=== PATIENT | male | born 1955 | race Two or more races ===

== ENCOUNTER 2016-09-17 21:49 | Emergency (ER) | payer BC ==
[2016-09-17] MEDS ORDERED: Diphtheria,Pertussis(Acell),Tetanus Vaccine 0.5 ML Syringe IM ONE (21:58)
--- NOTE | 2016-09-17 22:08 | EDM.PDOC ---
<Kofi Perez - Last Filed: 09/17/16 22:14> ED HPI GENERAL MEDICAL PROBLEM - General Chief Complaint: Skin Complaint Stated Complaint: PT HAS NAIL IN CHEST Time Seen by Provider: 09/17/16 22:03 Source of Information: Reports: Patient History Limitations: Reports: No Limitations - History of Present Illness INITIAL COMMENTS - FREE TEXT/NARRATIVE: History of present illness: [61-year-old male comes in complaining of a wound to right pectoral region secondary to a nail.] Review of systems: As per history of present illness and below otherwise all systems reviewed and negative. Past medical history: As per history of present illness and as reviewed below otherwise noncontributory. Surgical history: As per history of present illness and as reviewed below otherwise noncontributory. Social history: No reported history of drug or alcohol abuse. Family history: As per history of present illness and as reviewed below otherwise noncontributory. Physical exam: HEENT: Atraumatic, normocephalic, pupils reactive, negative for conjunctival pallor or scleral icterus, mucous membranes moist, throat clear, neck supple, nontender, trachea midline. Lungs: Clear to auscultation, breath sounds equal bilaterally, chest nontender. Heart: S1S2, regular, negative for clicks, rubs, or JVD. Abdomen: Soft, nondistended, nontender. Negative for masses or hepatosplenomegaly. Negative for costovertebral tenderness. Pelvis: Stable nontender. Genitourinary: Deferred. Rectal: Deferred. Extremities: Atraumatic, negative for cords or calf pain. Neurovascular unremarkable. Neuro: Awake, alert, oriented. Cranial nerves II through XII unremarkable. Cerebellum unremarkable. Motor and sensory unremarkable throughout. Exam nonfocal. Skin: Small wound noted to right pectoral region approximately 2 cm above the right nipple Diagnostics: [] Therapeutics: [Tetanus] Impression: [Superficial wound to right chest] Plan: [Tetanus] Definitive disposition and diagnosis as appropriate pending reevaluation and review of above. Right Upper Chest Pain Score (Numeric/FACES): 3 - Related Data Allergies Allergy/AdvReac Type Severity Reaction Status Date / Time No Known Allergies Allergy Verified 02/22/16 16:57 Home Meds: Home Meds . [Unable to Verify Home Med List] 09/17/16 [History] Past Medical History - Past Health History Medical/Surgical History: Denies Medical/Surgical History HEENT History: Reports: None Cardiovascular History: Reports: Hypertension Psychiatric History: Reports: None - Past Surgical History Musculoskeletal Surgical History: Reports: Other (See Below) Social & Family History - Family History Family Medical History: Noncontributory - Tobacco Use Smoking Status *Q: Current Some Day Smoker Years of Tobacco use: 10 Packs/Tins Daily: 0.2 - Caffeine Use Caffeine Use: Reports: Coffee - Recreational Drug Use Recreational Drug Use: No ED ROS GENERAL - Review of Systems Review Of Systems: See Below (See history of present illness) ED EXAM, SKIN/RASH Exam: See Below (History of present illness) Course - Vital Signs Last Recorded V/S: Last Vital Signs Temp 36.6 C 09/17/16 21:58 Pulse 64 09/17/16 21:58 Resp 16 09/17/16 21:58 BP 176/87 H 09/17/16 21:58 Pulse Ox 96 09/17/16 21:58 - Orders/Labs/Meds Orders: Active Orders 24 hr Category Date Time Status Vaccines to be Administered [RC] PER UNIT ROUTINE Care 09/17/16 21:58 Active Chest 2V [CR] Stat Exams 09/17/16 21:56 Taken Meds: Medications Discontinued Medications Generic Name Dose Route Start Last Admin Trade Name Trena PRN Reason Stop Dose Admin Diphtheria/Tetanus/Acell Pertussis 0.5 ml 09/17/16 21:58 09/17/16 22:15 Adacel IM 09/17/16 21:59 0.5 ml .ONCE ONE Administration Departure - Departure Time of Disposition: 22:09 Disposition: Home, Self-Care 01 Clinical Impression: Abrasion - Discharge Information Referrals: PCP,None [Primary Care Provider] - Forms: ED Department Discharge Additional Instructions: The following information is given to patients seen in the emergency department who are being discharged to home. This information is to outline your options for follow-up care. We provide all patients seen in our emergency department with a follow-up referral. The need for follow-up, as well as the timing and circumstances, are variable depending upon the specifics of your emergency department visit. If you don't have a primary care physician on staff, we will provide you with a referral. We always advise you to contact your personal physician following an emergency department visit to inform them of the circumstance of the visit and for follow-up with them and/or the need for any referrals to a consulting specialist. The emergency department will also refer you to a specialist when appropriate. This referral assures that you have the opportunity for followup care with a specialist. All of these measure are taken in an effort to provide you with optimal care, which includes your followup. Under all circumstances we always encourage you to contact your private physician who remains a resource for coordinating your care. When calling for followup care, please make the office aware that this follow-up is from your recent emergency room visit. If for any reason you are refused follow-up, please contact the [facility] emergency department at and asked to speak to the emergency department charge nurse. Followup primary medical doctor one to 2 days return as needed as discussed - My Orders Last 24 Hours: My Active Orders 09/17/16 21:56 Chest 2V [CR] Stat 09/17/16 21:58 Vaccines to be Administered [RC] PER UNIT ROUTINE - Assessment/Plan Last 24 Hours: My Active Orders 09/17/16 21:56 Chest 2V [CR] Stat 09/17/16 21:58 Vaccines to be Administered [RC] PER UNIT ROUTINE <Chris Ann - Last Filed: 09/17/16 22:19> Departure - Departure Condition: good
[2016-09-17 23:35] VITALS: BP 165/84
--- NOTE | 2016-09-18 16:56 | CR ---
EXAM DATE: 09/17/16 PATIENT'S AGE: 61 Patient: FARNAZ KUMAR Facility: [place], [place] Site . Site : [id number] Study: XRay Chest [id number]/21/[id number] 10:14:39 PM Ordering Physician: Doctor Malhotra Final Report: INDICATION: got hit by a nail, upper Right front chest, Right shoulder pain TECHNIQUE: Chest radiograph 2 views COMPARISON: None FINDINGS: Cardiovascular and mediastinum: The cardiac silhouette is normal in appearance and size. Mediastinum is within normal limits. Lungs and pleural spaces: Both lungs are unremarkable in appearance. No sign of pleural effusion. No pneumothorax is seen. Bones and soft tissues: No significant findings. No radiopaque foreign body seen. An overlying button is seen in the right supraclavicular region. IMPRESSION: 1. No acute cardiopulmonary disease seen. Dictated by: Barrera Max MD @ 09/17/2016 22:38:08 (Electronic Signature) Report Signed by Proxy. JOSE L
== END 2016-09-17 23:00 | disposition home or self-care (01) ==
LOC: MW.ED 21:49
DX: S20.311A Abrasion of right front wall of thorax, initial encounter (principal); I10 Essential (primary) hypertension; F17.210 Nicotine dependence, cigarettes, uncomplicated; W22.8XXA Striking against or struck by other objects, initial encounter
CPT/HCPCS: 71020; 71020-26; 90471; 90715; 99282; 99283-25

== ENCOUNTER 2019-02-18 20:34 | Observation (INO) | payer BC ==
[2019-02-18] MEDS ORDERED: Sodium Chloride 0.9% 10 ML Syringe FLUSH PRN (20:57)
[2019-02-18] MEDS ORDERED: Sodium Chloride 0.9% 2.5 ML Syringe FLUSH PRN (20:57)
--- NOTE | 2019-02-18 21:09 | CT ---
INDICATION: Left arm tingling, numbness, and weakness TECHNIQUE: Head CT without contrast. COMPARISON: None FINDINGS: CSF spaces: Within normal limits for age. Brain parenchyma: There are nonspecific low attenuation white matter changes consistent with chronic microvascular disease. No sign of mass, hemorrhage, or midline shift. Skull base and calvarium: The visualized paranasal sinuses and mastoid air cells demonstrate no acute or significant findings. The visualized orbits are grossly unremarkable. No skull fractures. IMPRESSION: 1. No acute findings. 2. Nonspecific white matter disease, typical of chronic microvascular disease. Please note that all CT scans at this facility use dose modulation, iterative reconstruction, and/or weight-based dosing when appropriate to reduce radiation dose to as low as reasonably achievable. Dictated by Shonda Gonzalez MD @ Feb 18 2019 9:07PM Signed by Dr. Shonda Gonzalez @ Feb 18 2019 9:07PM
--- NOTE | 2019-02-18 21:13 | EDM.PDOC ---
ED HPI GENERAL MEDICAL PROBLEM - General Chief Complaint: Neurological Problem Stated Complaint: HYPERTENSION Time Seen by Provider: 02/18/19 21:05 Source of Information: Reports: Patient History Limitations: Reports: No Limitations, Language Barrier - History of Present Illness INITIAL COMMENTS - FREE TEXT/NARRATIVE: HISTORY AND PHYSICAL: History of present illness: Patient is a 63-year-old cuban speaking male presents to the ED with complaint of left arm numbness approximately 1 hour prior to arrival to the ED. Stroke code was called by nursing staff. Patient states he had the numbness then took his blood pressure and it was 220 systolic. He reports history of hypertension on metoprolol and lisinopril. He states the numbness has since resolved. He denies headache, head injury, visual changes, chest pain, shortness of breath, nausea, vomiting, abdominal pain, weakness, left arm pain or jaw pain. Review of systems: As per history of present illness and below otherwise all systems reviewed and negative. Past medical history: As per history of present illness and as reviewed below otherwise noncontributory. Surgical history: As per history of present illness and as reviewed below otherwise noncontributory. Social history: No reported history of drug or alcohol abuse. Family history: As per history of present illness and as reviewed below otherwise noncontributory. Physical exam: General: Patient sitting comfortably in no acute distress and nontoxic appearing HEENT: Atraumatic, normocephalic, pupils reactive, negative for conjunctival pallor or scleral icterus, mucous membranes moist, throat clear, neck supple, nontender, trachea midline. No meningeal signs. Lungs: Clear to auscultation, breath sounds equal bilaterally, chest nontender. Heart: S1S2, regular, negative for clicks, rubs, or overt murmur. Abdomen: Soft, nondistended, nontender. Negative for masses or hepatosplenomegaly. Negative for costovertebral tenderness. No rigidity, rebound , guarding. Pelvis: Stable nontender. Genitourinary: Deferred. Rectal: Deferred. Extremities: Atraumatic, negative for cords or calf pain. Neurovascular unremarkable. Neuro: Awake, alert, oriented. Cranial nerves II through XII unremarkable. Cerebellum unremarkable. Motor and sensory unremarkable throughout. Exam nonfocal. Notes: blood pressure improved to 150/80 without therapeutics. Diagnostics: CBC, CMP, Head CT, EKG, CXR, PT/INR, troponin, UA Therapeutics: none Prescriptions: Impression: Numbness, TIA Plan: Discussed with Dr. Brandon, patient admitted to observation for transient ischemic attack Definitive disposition and diagnosis as appropriate pending reevaluation and review of above. - Related Data Allergies Allergy/AdvReac Type Severity Reaction Status Date / Time No Known Allergies Allergy Verified 02/18/19 21:02 Home Meds: Home Meds Lisinopril 20 mg PO DAILY 02/18/19 [History] Metoprolol Succinate [[place] Sprinkle] 100 mg PO DAILY 02/18/19 [History] Tamsulosin HCl [Flomax] 0.4 mg PO BID 02/18/19 [History] Past Medical History - Past Health History Medical/Surgical History: Denies Medical/Surgical History HEENT History: Reports: None Cardiovascular History: Reports: Hypertension Genitourinary History: Reports: Prostate Disorder Musculoskeletal History: Reports: Gout Psychiatric History: Reports: None - Past Surgical History Musculoskeletal Surgical History: Reports: Other (See Below) Social & Family History - Family History Family Medical History: Noncontributory - Caffeine Use Caffeine Use: Reports: Coffee ED ROS GENERAL - Review of Systems Review Of Systems: ROS reveals no pertinent complaints other than HPI. ED EXAM, NEURO - Physical Exam Exam: See Below (see dictation) Course - Vital Signs Last Recorded V/S: Last Vital Signs Temp 97 F 02/18/19 20:37 Pulse 55 L 02/18/19 21:19 Resp 18 02/18/19 21:19 BP 172/79 H 02/18/19 21:19 Pulse Ox 98 02/18/19 21:19 - Orders/Labs/Meds Orders: Active Orders 24 hr Category Date Time Status EKG Documentation Completion [RC] STAT Care 02/18/19 20:57 Active Chest 1V Frontal [CR] Stat Exams 02/18/19 20:40 Taken COMPREHENSIVE METABOLIC PN,CMP [CHEM] Stat Lab 02/18/19 21:16 Received TROPONIN I [CHEM] Stat Lab 02/18/19 21:16 Received Sodium Chloride 0.9% [Saline Flush] Med 02/18/19 20:57 Active 10 ml FLUSH ASDIRECTED PRN Sodium Chloride 0.9% [Saline Flush] Med 02/18/19 20:57 Active 2.5 ml FLUSH ASDIRECTED PRN Saline Lock Insert [OM.PC] Stat Oth 02/18/19 20:57 Ordered Medication Orders Sodium Chloride (Saline Flush) 10 ml FLUSH ASDIRECTED PRN PRN Reason: Keep Vein Open Sodium Chloride (Saline Flush) 2.5 ml FLUSH ASDIRECTED PRN PRN Reason: Keep Vein Open Labs: Laboratory Tests 02/18/19 02/18/19 02/18/19 Range/Units 21:15 21:16 21:16 WBC 9.40 (4.0-11.0) K/uL RBC 4.64 (4.50-5.90) M/uL Hgb 14.2 (13.0-17.0) g/dL Hct 42.1 (38.0-50.0) % MCV 90.7 (80.0-98.0) fL MCH 30.6 (27.0-32.0) pg MCHC 33.7 (31.0-37.0) g/dL RDW Std Deviation 43.8 (28.0-62.0) fl RDW Coeff of [place] 13 (11.0-15.0) % Plt Count 249 (150-400) K/uL MPV 11.60 (7.40-12.00) fL Neut % (Auto) 59.3 (48.0-80.0) % Lymph % (Auto) 28.2 (16.0-40.0) % [place] % (Auto) 11.0 (0.0-15.0) % Eos % (Auto) 1.1 (0.0-7.0) % Baso % (Auto) 0.4 (0.0-1.5) % Neut # (Auto) 5.6 (1.4-5.7) K/uL Lymph # (Auto) 2.7 H (0.6-2.4) K/uL [place] # (Auto) 1.0 H (0.0-0.8) K/uL Eos # (Auto) 0.1 (0.0-0.7) K/uL Baso # (Auto) 0.0 (0.0-0.1) K/uL Nucleated RBC % 0.0 /100WBC Nucleated RBCs # 0 K/uL INR 1.06 Urine Color YELLOW Urine Appearance CLEAR Urine pH 7.5 (5.0-8.0) Ur Specific [place] 1.020 (1.001-1.035) Urine Protein NEGATIVE (NEGATIVE) mg/dL Urine Glucose (UA) NEGATIVE (NEGATIVE) mg/dL Urine Ketones NEGATIVE (NEGATIVE) mg/dL Urine Occult Blood NEGATIVE (NEGATIVE) Urine Nitrite NEGATIVE (NEGATIVE) Urine Bilirubin NEGATIVE (NEGATIVE) Urine Urobilinogen 1.0 (<2.0) EU/dL Ur Leukocyte Esterase NEGATIVE (NEGATIVE) Meds: Medications Generic Name Dose Route Start Last Admin Trade Name Freq PRN Reason Stop Dose Admin Sodium Chloride 10 ml 02/18/19 20:57 Saline Flush FLUSH ASDIRECTED PRN Keep Vein Open Sodium Chloride 2.5 ml 02/18/19 20:57 Saline Flush FLUSH ASDIRECTED PRN Keep Vein Open Departure - Departure Time of Disposition: 21:52 Disposition: Refer to Observation Condition: Good Clinical Impression: Transient ischemic attack - Discharge Information Forms: ED Department Discharge
[2019-02-18 21:53] LABS: BLOOD UREA NITROGEN,BUN 14 mg/dL (7.0-18.0); CHLORIDE,CL 103 mmol/L (98-107); GLUCOSE RANDOM 108 mg/dL (74-106); POTASSIUM,K 3.9 mmol/L (3.5-5.1); SODIUM,NA 139 mmol/L (136-148)
--- NOTE | 2019-02-18 22:06 | CR ---
Indication: Left arm numbness and tingling Technique: Chest 1 view Comparison: None Findings/Impression: Cardiovascular and mediastinum: Heart size and vasculature are normal in caliber and appearance. Mediastinum is within normal limits. Lungs and pleural space: Lungs are clear. No sign of infiltrate or mass. No sign of pleural effusion. No pneumothorax. Bones and soft tissues: No significant findings. Dictated by Shonda Gonzalez MD @ Feb 18 2019 10:05PM Signed by Dr. Shonda Gonzalez @ Feb 18 2019 10:05PM
--- NOTE | 2019-02-18 22:13 | PCM.HP.2 ---
H&P History of Present Illness - General Date of Service: 02/18/19 Admit Problem/Dx: Admission Diagnosis/Problem Admission Diagnosis/Problem TIA, Transient ischemic attack - History of Present Illness Initial Comments - Free Text/Narative: 63 yo male with pmh of HTN, arthritis and BPH who presents with left hand numbness. Patient reports numbness of the left hand that involving all fingers that extends to just below the elbow. He denies any weakness of the hand or arm. He has never had symptoms like this before. The hand numbness lasted 30 minutes. In the ED his BP was intiall 212/103 but improved to 151/[address] head showed no acute findings. - Related Data Allergies/Adverse Reactions: Allergies Allergy/AdvReac Type Severity Reaction Status Date / Time No Known Allergies Allergy Verified 02/19/19 03:44 Home Medications: Home Meds Lisinopril 20 mg PO DAILY 02/18/19 [History] Metoprolol Succinate [Kapspargo Sprinkle] 100 mg PO DAILY 02/18/19 [History] Tamsulosin HCl [Flomax] 0.4 mg PO BID 02/18/19 [History] Past Medical History - Past Health History Medical/Surgical History: Denies Medical/Surgical History HEENT History: Reports: None Other HEENT History: wears glasses Cardiovascular History: Reports: Hypertension Genitourinary History: Reports: Prostate Disorder Musculoskeletal History: Reports: Gout Psychiatric History: Reports: None - Past Surgical History Musculoskeletal Surgical History: Reports: Other (See Below) Social & Family History - Family History Family Medical History: Noncontributory - Caffeine Use Caffeine Use: Reports: Coffee - Recreational Drug Use Recreational Drug Use: No H&P Review of Systems - Review of Systems: Review Of Systems: ROS reveals no pertinent complaints other than HPI. Exam - Exam Exam: See Below - Vital Signs Vital Signs: Last Vital Signs Temp 36.4 C 02/18/19 22:00 Pulse 55 L 02/18/19 22:00 Resp 18 02/18/19 22:00 BP 151/80 H 02/18/19 22:00 Pulse Ox 98 02/18/19 22:00 Weight: 74.6 kg - Exam General: Alert, Oriented HEENT: Mucosa Moist & [place] Lungs: Clear to Auscultation, Normal Respiratory Effort Cardiovascular: Regular Rate, Regular Rhythm GI/Abdominal Exam: Normal Bowel Sounds, Soft, Non-Tender Extremities: Non-Tender, No Pedal Edema Skin: Warm, Dry, Intact Neurological: Cranial Nerves Intact, Reflexes Equal Bilateral, Strength Equal Bilateral, Normal Speech, Normal Tone, Sensation Intact. No: Focal Deficit - Patient Data Lab Results Last 24 hrs: Laboratory Results - last 24 hr 02/18/19 02/18/19 02/18/19 Range/Units 21:15 21:16 21:16 WBC 9.40 (4.0-11.0) K/uL RBC 4.64 (4.50-5.90) M/uL Hgb 14.2 (13.0-17.0) g/dL Hct 42.1 (38.0-50.0) % MCV 90.7 (80.0-98.0) fL MCH 30.6 (27.0-32.0) pg MCHC 33.7 (31.0-37.0) g/dL RDW Std Deviation 43.8 (28.0-62.0) fl RDW Coeff of [place] 13 (11.0-15.0) % Plt Count 249 (150-400) K/uL MPV 11.60 (7.40-12.00) fL Neut % (Auto) 59.3 (48.0-80.0) % Lymph % (Auto) 28.2 (16.0-40.0) % [place] % (Auto) 11.0 (0.0-15.0) % Eos % (Auto) 1.1 (0.0-7.0) % Baso % (Auto) 0.4 (0.0-1.5) % Neut # (Auto) 5.6 (1.4-5.7) K/uL Lymph # (Auto) 2.7 H (0.6-2.4) K/uL [place] # (Auto) 1.0 H (0.0-0.8) K/uL Eos # (Auto) 0.1 (0.0-0.7) K/uL Baso # (Auto) 0.0 (0.0-0.1) K/uL Nucleated RBC % 0.0 /100WBC Nucleated RBCs # 0 K/uL INR 1.06 Sodium (136-148) mmol/L Potassium (3.5-5.1) mmol/L Chloride (98-107) mmol/L Carbon Dioxide (21.0-32.0) mmol/L BUN (7.0-18.0) mg/dL Creatinine (0.8-1.3) mg/dL Est Cr Clr Drug Dosing Estimated GFR (MDRD) ml/min Glucose (74-106) mg/dL Calcium (8.5-10.1) mg/dL Total Bilirubin (0.2-1.0) mg/dL AST (15-37) IU/L ALT (14-63) IU/L Alkaline Phosphatase (46-116) U/L Troponin I (0.000-0.056) ng/mL Total Protein (6.4-8.2) g/dL Albumin (3.4-5.0) g/dL Globulin (2.6-4.0) g/dL Albumin/Globulin Ratio (0.9-1.6) Urine Color YELLOW Urine Appearance CLEAR Urine pH 7.5 (5.0-8.0) Ur Specific [place] 1.020 (1.001-1.035) Urine Protein NEGATIVE (NEGATIVE) mg/dL Urine Glucose (UA) NEGATIVE (NEGATIVE) mg/dL Urine Ketones NEGATIVE (NEGATIVE) mg/dL Urine Occult Blood NEGATIVE (NEGATIVE) Urine Nitrite NEGATIVE (NEGATIVE) Urine Bilirubin NEGATIVE (NEGATIVE) Urine Urobilinogen 1.0 (<2.0) EU/dL Ur Leukocyte Esterase NEGATIVE (NEGATIVE) 02/18/19 Range/Units 21:16 WBC (4.0-11.0) K/uL RBC (4.50-5.90) M/uL Hgb (13.0-17.0) g/dL Hct (38.0-50.0) % MCV (80.0-98.0) fL MCH (27.0-32.0) pg MCHC (31.0-37.0) g/dL RDW Std Deviation (28.0-62.0) fl RDW Coeff of [place] (11.0-15.0) % Plt Count (150-400) K/uL MPV (7.40-12.00) fL Neut % (Auto) (48.0-80.0) % Lymph % (Auto) (16.0-40.0) % [place] % (Auto) (0.0-15.0) % Eos % (Auto) (0.0-7.0) % Baso % (Auto) (0.0-1.5) % Neut # (Auto) (1.4-5.7) K/uL Lymph # (Auto) (0.6-2.4) K/uL [place] # (Auto) (0.0-0.8) K/uL Eos # (Auto) (0.0-0.7) K/uL Baso # (Auto) (0.0-0.1) K/uL Nucleated RBC % /100WBC Nucleated RBCs # K/uL INR Sodium 139 (136-148) mmol/L Potassium 3.9 (3.5-5.1) mmol/L Chloride 103 (98-107) mmol/L Carbon Dioxide 25.0 (21.0-32.0) mmol/L BUN 14 (7.0-18.0) mg/dL Creatinine 0.9 (0.8-1.3) mg/dL Est Cr Clr Drug Dosing TNP Estimated GFR (MDRD) > 60.0 ml/min Glucose 108 H (74-106) mg/dL Calcium 8.5 (8.5-10.1) mg/dL Total Bilirubin 0.4 (0.2-1.0) mg/dL AST 16 (15-37) IU/L ALT 25 (14-63) IU/L Alkaline Phosphatase 116 (46-116) U/L Troponin I < 0.050 (0.000-0.056) ng/mL Total Protein 7.7 (6.4-8.2) g/dL Albumin 4.0 (3.4-5.0) g/dL Globulin 3.7 (2.6-4.0) g/dL Albumin/Globulin Ratio 1.1 (0.9-1.6) Urine Color Urine Appearance Urine pH (5.0-8.0) Ur Specific [place] (1.001-1.035) Urine Protein (NEGATIVE) mg/dL Urine Glucose (UA) (NEGATIVE) mg/dL Urine Ketones (NEGATIVE) mg/dL Urine Occult Blood (NEGATIVE) Urine Nitrite (NEGATIVE) Urine Bilirubin (NEGATIVE) Urine Urobilinogen (<2.0) EU/dL Ur Leukocyte Esterase (NEGATIVE) Result Diagrams: 02/18/19 21:16 02/18/19 21:16 Problem List Initiated/Reviewed/Updated: Yes Orders Last 24hrs: Active Orders 24 hr Category Date Time Status Admission Status [Patient Status] [ADT] Stat ADT 02/18/19 21:53 Active Antiembolic Devices [RC] PER UNIT ROUTINE Care 02/18/19 22:06 Ordered EKG Documentation Completion [RC] STAT Care 02/18/19 20:57 Active Oxygen Therapy [RC] PRN Care 02/18/19 22:05 Ordered Up ad Nasima [RC] ASDIRECTED Care 02/18/19 22:05 Ordered VTE/DVT Education [RC] PER UNIT ROUTINE Care 02/18/19 22:05 Ordered Vital Signs [RC] Q4H Care 02/18/19 22:05 Ordered Regular Diet [DIET] Diet 02/18/19 Breakfast Ordered Ang Head wo Cont [MR] Routine Exams 02/18/19 22:04 Ordered Ang Neck wo Cont [MR] Routine Exams 02/18/19 22:04 Ordered Brain w wo Cont [MR] Routine Exams 02/18/19 22:04 Ordered GLYCOSYLATED HEMOGLOBIN,HGBA1C [CHEM] AM Lab 02/19/19 05:11 Ordered LIPID PANEL [CHEM] AM Lab 02/19/19 05:11 Ordered Sodium Chloride 0.9% [Saline Flush] Med 02/18/19 20:57 Active 10 ml FLUSH ASDIRECTED PRN Sodium Chloride 0.9% [Saline Flush] Med 02/18/19 20:57 Active 2.5 ml FLUSH ASDIRECTED PRN Saline Lock Insert [OM.PC] Stat Oth 02/18/19 20:57 Ordered Sequential Compression Device [OM.PC] Per Unit Routine Oth 02/18/19 22:05 Ordered Resuscitation Status Routine Resus Stat 02/18/19 22:05 Ordered Medication Orders Sodium Chloride (Saline Flush) 10 ml FLUSH ASDIRECTED PRN PRN Reason: Keep Vein Open Sodium Chloride (Saline Flush) 2.5 ml FLUSH ASDIRECTED PRN PRN Reason: Keep Vein Open Assessment/Plan Comment:: 63 yo male admitted for TIA. We will monitor overnight on telemetry. We will check MRI brain and MRA of head and neck.
[2019-02-19 06:38] LABS: HEMOGLOBIN A1C 6.1 % (4.5-6.2)
[2019-02-19] MEDS ORDERED: Ondansetron 4 MG Tab.DIS PO PRN (08:15)
[2019-02-19] MEDS ORDERED: Acetaminophen 325 MG Tab PO PRN (08:15)
[2019-02-19] MEDS: Aspirin 81 MG Tab.Chew PO SCH (09:16)
--- NOTE | 2019-02-19 12:52 | PCM.PN ---
- General Info Date of Service: 02/19/19 Admission Dx/Problem (Free Text): Admission Diagnosis/Problem Admission Diagnosis/Problem TIA, Transient ischemic attack Subjective Update: Feeling good this morning, no further symptoms. Asking to go home. Using [employer] office instructor, we discussed the need for further evaluation with MRI. He is agreeable to stay and understands holding BP medications. Functional Status: Reports: Pain Controlled, Tolerating Diet, Ambulating, Urinating - Review of Systems General: Reports: No Symptoms HEENT: Reports: No Symptoms. Denies: Headaches, Sore Throat, Visual Changes Pulmonary: Reports: No Symptoms. Denies: Shortness of Breath Cardiovascular: Reports: No Symptoms. Denies: Chest Pain Gastrointestinal: Reports: No Symptoms. Denies: Abdominal Pain, Nausea, Vomiting Genitourinary: Reports: No Symptoms. Denies: Dysuria, Frequency, Burning Musculoskeletal: Reports: No Symptoms Neurological: Reports: No Symptoms Psychiatric: Reports: No Symptoms - Patient Data Vitals - Most Recent: Last Vital Signs Temp 97.5 F 02/19/19 07:40 Pulse 55 L 02/19/19 07:40 Resp 19 02/19/19 07:40 BP 174/84 H 02/19/19 08:50 Pulse Ox 95 02/19/19 07:40 Weight - Most Recent: 78.925 kg I&O - Last 24 Hours: Intake & Output 02/18/19 02/19/19 02/19/19 22:59 06:59 14:59 Intake Total 0 Output Total 0 Balance 0 Lab Results Last 24 Hours: Laboratory Results - last 24 hr 02/18/19 02/18/19 02/18/19 Range/Units 21:15 21:16 21:16 WBC 9.40 (4.0-11.0) K/uL RBC 4.64 (4.50-5.90) M/uL Hgb 14.2 (13.0-17.0) g/dL Hct 42.1 (38.0-50.0) % MCV 90.7 (80.0-98.0) fL MCH 30.6 (27.0-32.0) pg MCHC 33.7 (31.0-37.0) g/dL RDW Std Deviation 43.8 (28.0-62.0) fl RDW Coeff of Aziza 13 (11.0-15.0) % Plt Count 249 (150-400) K/uL MPV 11.60 (7.40-12.00) fL Neut % (Auto) 59.3 (48.0-80.0) % Lymph % (Auto) 28.2 (16.0-40.0) % Mcdowell % (Auto) 11.0 (0.0-15.0) % Eos % (Auto) 1.1 (0.0-7.0) % Baso % (Auto) 0.4 (0.0-1.5) % Neut # (Auto) 5.6 (1.4-5.7) K/uL Lymph # (Auto) 2.7 H (0.6-2.4) K/uL Mcdowell # (Auto) 1.0 H (0.0-0.8) K/uL Eos # (Auto) 0.1 (0.0-0.7) K/uL Baso # (Auto) 0.0 (0.0-0.1) K/uL Nucleated RBC % 0.0 /100WBC Nucleated RBCs # 0 K/uL INR 1.06 Sodium (136-148) mmol/L Potassium (3.5-5.1) mmol/L Chloride (98-107) mmol/L Carbon Dioxide (21.0-32.0) mmol/L BUN (7.0-18.0) mg/dL Creatinine (0.8-1.3) mg/dL Est Cr Clr Drug Dosing Estimated GFR (MDRD) ml/min Glucose (74-106) mg/dL Hemoglobin A1c (4.5-6.2) % Calcium (8.5-10.1) mg/dL Total Bilirubin (0.2-1.0) mg/dL AST (15-37) IU/L ALT (14-63) IU/L Alkaline Phosphatase (46-116) U/L Troponin I (0.000-0.056) ng/mL Total Protein (6.4-8.2) g/dL Albumin (3.4-5.0) g/dL Globulin (2.6-4.0) g/dL Albumin/Globulin Ratio (0.9-1.6) Triglycerides (0-200) mg/dL Cholesterol (50-200) mg/dL LDL Cholesterol, Calc (60-180) mg/dL VLDL Cholesterol (5-55) mg/dL HDL Cholesterol (40-60) mg/dL Cholesterol/HDL Ratio (3.3-6.0) Urine Color YELLOW Urine Appearance CLEAR Urine pH 7.5 (5.0-8.0) Ur Specific Harrison 1.020 (1.001-1.035) Urine Protein NEGATIVE (NEGATIVE) mg/dL Urine Glucose (UA) NEGATIVE (NEGATIVE) mg/dL Urine Ketones NEGATIVE (NEGATIVE) mg/dL Urine Occult Blood NEGATIVE (NEGATIVE) Urine Nitrite NEGATIVE (NEGATIVE) Urine Bilirubin NEGATIVE (NEGATIVE) Urine Urobilinogen 1.0 (<2.0) EU/dL Ur Leukocyte Esterase NEGATIVE (NEGATIVE) 02/18/19 02/19/19 02/19/19 Range/Units 21:16 05:39 05:39 WBC (4.0-11.0) K/uL RBC (4.50-5.90) M/uL Hgb (13.0-17.0) g/dL Hct (38.0-50.0) % MCV (80.0-98.0) fL MCH (27.0-32.0) pg MCHC (31.0-37.0) g/dL RDW Std Deviation (28.0-62.0) fl RDW Coeff of Aziza (11.0-15.0) % Plt Count (150-400) K/uL MPV (7.40-12.00) fL Neut % (Auto) (48.0-80.0) % Lymph % (Auto) (16.0-40.0) % Mcdowell % (Auto) (0.0-15.0) % Eos % (Auto) (0.0-7.0) % Baso % (Auto) (0.0-1.5) % Neut # (Auto) (1.4-5.7) K/uL Lymph # (Auto) (0.6-2.4) K/uL Mcdowell # (Auto) (0.0-0.8) K/uL Eos # (Auto) (0.0-0.7) K/uL Baso # (Auto) (0.0-0.1) K/uL Nucleated RBC % /100WBC Nucleated RBCs # K/uL INR Sodium 139 (136-148) mmol/L Potassium 3.9 (3.5-5.1) mmol/L Chloride 103 (98-107) mmol/L Carbon Dioxide 25.0 (21.0-32.0) mmol/L BUN 14 (7.0-18.0) mg/dL Creatinine 0.9 (0.8-1.3) mg/dL Est Cr Clr Drug Dosing TNP Estimated GFR (MDRD) > 60.0 ml/min Glucose 108 H (74-106) mg/dL Hemoglobin A1c 6.1 (4.5-6.2) % Calcium 8.5 (8.5-10.1) mg/dL Total Bilirubin 0.4 (0.2-1.0) mg/dL AST 16 (15-37) IU/L ALT 25 (14-63) IU/L Alkaline Phosphatase 116 (46-116) U/L Troponin I < 0.050 (0.000-0.056) ng/mL Total Protein 7.7 (6.4-8.2) g/dL Albumin 4.0 (3.4-5.0) g/dL Globulin 3.7 (2.6-4.0) g/dL Albumin/Globulin Ratio 1.1 (0.9-1.6) Triglycerides 57 (0-200) mg/dL Cholesterol 133 (50-200) mg/dL LDL Cholesterol, Calc 83 (60-180) mg/dL VLDL Cholesterol 11 (5-55) mg/dL HDL Cholesterol 39 L (40-60) mg/dL Cholesterol/HDL Ratio 3.4 (3.3-6.0) Urine Color Urine Appearance Urine pH (5.0-8.0) Ur Specific Harrison (1.001-1.035) Urine Protein (NEGATIVE) mg/dL Urine Glucose (UA) (NEGATIVE) mg/dL Urine Ketones (NEGATIVE) mg/dL Urine Occult Blood (NEGATIVE) Urine Nitrite (NEGATIVE) Urine Bilirubin (NEGATIVE) Urine Urobilinogen (<2.0) EU/dL Ur Leukocyte Esterase (NEGATIVE) Med Orders - Current: Current Medications Acetaminophen (Tylenol) 650 mg PO Q4H PRN PRN Reason: Pain Aspirin (Aspirin) 81 mg PO DAILY [facility] Last Admin: 02/19/19 09:16 Dose: 81 mg Ondansetron HCl (Zofran Odt) 4 mg PO Q4H PRN PRN Reason: Nausea/Vomiting Sodium Chloride (Saline Flush) 10 ml FLUSH ASDIRECTED PRN PRN Reason: Keep Vein Open Sodium Chloride (Saline Flush) 2.5 ml FLUSH ASDIRECTED PRN PRN Reason: Keep Vein Open - Exam General: Alert, Oriented, Cooperative, No Acute Distress Lungs: Clear to Auscultation, Normal Respiratory Effort Cardiovascular: Regular Rate, Regular Rhythm GI/Abdominal Exam: Normal Bowel Sounds, Soft, Non-Tender Extremities: Normal Inspection, Normal Range of Motion, Non-Tender, No Pedal Edema Neurological: No New Focal Deficit Psy/Mental Status: Alert, Normal Affect, Normal Mood - Problem List & Annotations (1) Transient ischemic attack SNOMED Code(s): 051190223 Code(s): G45.9 - TRANSIENT CEREBRAL ISCHEMIC ATTACK, UNSPECIFIED Status: Suspected Current Visit: No (2) HTN (hypertension) SNOMED Code(s): 83698955 Code(s): I10 - ESSENTIAL (PRIMARY) HYPERTENSION Status: Chronic Current Visit: Yes Qualifiers: Hypertension type: essential hypertension Qualified Code(s): I10 - Essential (primary) hypertension (3) BPH (benign prostatic hyperplasia) SNOMED Code(s): 018196322 Code(s): N40.0 - BENIGN PROSTATIC HYPERPLASIA WITHOUT LOWER URINRY TRACT SYMP Status: Chronic Current Visit: Yes - Problem List Review Problem List Initiated/Reviewed/Updated: Yes - My Orders Last 24 Hours: My Active Orders 02/19/19 08:15 Acetaminophen [Tylenol] 650 mg PO Q4H PRN Ondansetron [Zofran ODT] 4 mg PO Q4H PRN 02/19/19 09:00 Aspirin 81 mg PO DAILY - Plan Plan:: 63 yo male admitted for TIA. 1. TIA: Ruling out CVA. Allow for permissive HTN. Holding antihypertensive. Lipi panel obtained reveals LDL 83, HDL 39 and total cholesterol 133. A1c 6.0. Continue telemetry, no arrhythmias noted as of now. MRI brain and MRA of head and neck. Will start Statin and ASA. No further deficits, no need for evaluation by PT/OT/ST 2. HTN: See above, stable currently, holding medications. 3. BPH: Hold Flomax for now due to effects on BP. restart when possible. VTE prophylaxis: Heparin. Dispo: Likely in am
[2019-02-19] MEDS ORDERED: atorvaSTATin 40 MG Tab PO SCH (21:00)
[2019-02-20] MEDS ORDERED: Gadobenate Dimeglumine 529 MG/ML 20 ML SDV IVPUSH STA (06:55)
--- NOTE | 2019-02-20 08:19 | MR ---
Indication: Hand numbness Technique: 3D [id number] MR angiogram of the [id number] with 3-dimensional MIP projections were submitted. Comparison: No prior studies available for comparison at this institution. Findings: Internal carotid arteries, middle cerebral arteries and anterior cerebral arteries are normal. MCA bifurcations and anterior communicating artery region are normal. Hypoplastic left vertebral artery. Dominant right vertebral artery. Normal basilar artery, and posterior cerebral arteries are normal. Basilar tip is normal. No aneurysms, stenoses, or occlusions, throughout. Impression: No evidence of proximal arterial occlusion, aneurysm, dissection, or vascular malformation. Dictated by Roverto Bustamante MD @ Feb 20 2019 8:15AM Signed by Dr. Roverto Bustamante @ Feb 20 2019 8:18AM
--- NOTE | 2019-02-20 08:24 | MR ---
Indication: HAND NUMBNESS Technique: Irhp-pe-hscify MRA of the neck with 3D MIP reconstructions provided. All measurements are based on NASCET criteria. Comparison: No prior studies available for comparison at this institution. Findings: The aortic arch, great vessel origins and proximal subclavian arteries are not included on this nongadolinium exam. The remainder of the visualized cervical carotids and vertebral arteries are unremarkable. The right vertebral artery is dominant. 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 Specifically, no evidence of high grade stenosis, proximal occlusion, aneurysm, dissection, or vascular malformation. Impression: 1. The right vertebral artery is dominant. 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 2. No evidence of high grade stenosis, proximal occlusion, aneurysm, dissection, or vascular malformation. Dictated by Roverto Bustamante MD @ Feb 20 2019 8:18AM Signed by Dr. Roverto Bustamante @ Feb 20 2019 8:23AM
--- NOTE | 2019-02-20 08:31 | MR ---
Indication: Hand numbness. Technique: Noncontrast sagittal T1, axial FLAIR, T2 turbo spine echo, and diffusion weighted images. Supplemental post contrast T1 weighted axial and coronal sequences are provided after administration of 14 mL MultiHance gadolinium-based IV contrast. Comparison: 02/18/2019 CT Findings: The ventricles, sulci and gyri are normal size, shape and contour for age. The midline structures are centrally located with no evidence of shift. There are no suspicious intra or extra-axial fluid collections. No evidence of restricted diffusion to suggest acute ischemia. A few small discrete foci of T2 prolongation are present in the subcortical white matter, nonspecific but most commonly noted in the setting of migraines, hypertension, diabetes, or collagen vascular disease. Expected flow voids in the cavernous carotids and basilar artery. No abnormal contrast enhancement involving the brain parenchyma, meninges, calvarium or skull base. Impression: 1. No evidence of acute intracranial abnormality. 2. A few small discrete foci of T2 prolongation are present in the subcortical white matter, nonspecific but most commonly noted in the setting of migraines, hypertension, diabetes, or collagen vascular disease. Dictated by Roverto Bustamante MD @ Feb 20 2019 8:15AM Signed by Dr. Roverto Bustamante @ Feb 20 2019 8:30AM
[2019-02-20] MEDS: Aspirin 81 MG Tab.Chew PO SCH (08:34)
[2019-02-20] MEDS ORDERED: Lisinopril 10 MG Tab PO SCH (09:00)
[2019-02-20] MEDS ORDERED: Metoprolol Succinate 100 MG Tab.ER PO SCH (09:00)
[2019-02-20] MEDS ORDERED: Tamsulosin 0.4 MG Cap.ER PO SCH (10:00)
[2019-02-20 11:08] VITALS: BP 144/72; PULSE 56
[2019-02-20] MEDS ORDERED: Hydrochlorothiazide 12.5 MG Cap PO SCH (13:15)
--- NOTE | 2019-02-20 13:28 | PCM.DCSUM1 ---
Discharge Summary - Hospital Course Brief History: 63 yo male with pmh of HTN, arthritis and BPH who presents with left hand numbness. Patient reports numbness of the left hand that involving all fingers that extends to just below the elbow. He denies any weakness of the hand or arm. He has never had symptoms like this before. The hand numbness lasted 30 minutes. In the ED his BP was intiall 212/103 but improved to 151/[address] head showed no acute findings. Diagnosis: Stroke: No - Discharge Data Discharge Date: 02/20/19 Discharge Disposition: Home, Self-Care 01 Condition: Good - Referral to Home Health Primary Care Physician: PCP Unknown - Discharge Diagnosis/Problem(s) (1) Transient ischemic attack SNOMED Code(s): 909601901 ICD Code: G45.9 - TRANSIENT CEREBRAL ISCHEMIC ATTACK, UNSPECIFIED Status: Suspected Current Visit: No (2) HTN (hypertension) SNOMED Code(s): 97648156 ICD Code: I10 - ESSENTIAL (PRIMARY) HYPERTENSION Status: Chronic Current Visit: Yes Qualifiers: Hypertension type: essential hypertension Qualified Code(s): I10 - Essential (primary) hypertension (3) BPH (benign prostatic hyperplasia) SNOMED Code(s): 185585724 ICD Code: N40.0 - BENIGN PROSTATIC HYPERPLASIA WITHOUT LOWER URINRY TRACT SYMP Status: Chronic Current Visit: Yes - Patient Instructions Diet: Heart Healthy Diet Activity: As Tolerated Showering/Bathing: May Shower Notify Provider of: Fever, Increased Pain, Swelling and Redness, Drainage, Nausea and/or Vomiting - Discharge Plan *PRESCRIPTION DRUG MONITORING PROGRAM REVIEWED*: Not Applicable *COPY OF PRESCRIPTION DRUG MONITORING REPORT IN PATIENT KIRT: Not Applicable Prescriptions/Med Rec: Aspirin 81 mg PO DAILY #30 tab.chew atorvaSTATin [Lipitor] 40 mg PO BEDTIME #30 tablet hydroCHLOROthiazide [Hydrochlorothiazide] 12.5 mg PO DAILY #30 cap Home Medications: Home Meds Lisinopril 20 mg PO DAILY 02/18/19 [History] Tamsulosin HCl [Flomax] 0.4 mg PO BID 02/18/19 [History] Aspirin 81 mg PO DAILY #30 tab.chew 02/20/19 [Rx] atorvaSTATin [Lipitor] 40 mg PO BEDTIME #30 tablet 02/20/19 [Rx] hydroCHLOROthiazide [Hydrochlorothiazide] 12.5 mg PO DAILY #30 cap 02/20/19 [Rx] Oxygen Therapy Mode: Room Air Patient Handouts: Transient Ischemic Attack, [id number], Atorvastatin tablets , Aspirin, ASA oral tablets, Hydrochlorothiazide, HCTZ capsules or tablets Referrals: [facility] [Outside] Alecia Bass NP [Ordering Only Provider] - 03/03/19 3:30 pm - Discharge Summary/Plan Comment DC Time >30 min.: No Discharge Summary/Plan Comment: admitting diagnoses: TIA HTN Discharge Diagnoses: TIA HTN Uriel was admitted due to suspected TIA. He had MRI of head and MRA of head and neck to rule out CVA. Imaging returned negative. Suspect TIA. HTN was noted on admission, permissive HTN was allowed as ruling out CVA. He was restarted on Lisinopril, but metoprolol held as HR remained 50s without medications. BP with Lisinopril noted to be 140-150/80-90s. We will add HCTZ 12.5 mg to help manage BP. Lipid panel revealed Total cholesterol 133, with LDL 83. Due to TIA will start statin, Atorvastatin 40 mg along with ASA daily. He was educated and counseled on this, he understands. [employer] Parapro[employer] used for counseling. ECHO pending. He is to follow up with PCP in 1 week to monitor BP. He is to return to the ED or clinic if concern should arise. - Patient Data Vitals - Most Recent: Last Vital Signs Temp 98.0 F 02/20/19 11:00 Pulse 56 L 02/20/19 11:00 Resp 16 02/20/19 11:00 BP 144/72 H 02/20/19 11:00 Pulse Ox 95 02/20/19 11:00 Weight - Most Recent: 74.6 kg I&O - Last 24 hours: Intake & Output 02/19/19 02/20/19 02/20/19 22:59 06:59 14:59 Intake Total 700 440 Output Total 850 450 Balance -150 -10 Med Orders - Current: Current Medications Acetaminophen (Tylenol) 650 mg PO Q4H PRN PRN Reason: Pain Aspirin (Aspirin) 81 mg PO DAILY [facility] Last Admin: 02/20/19 08:34 Dose: 81 mg Atorvastatin Calcium (Lipitor) 40 mg PO BEDTIME [facility] Last Admin: 02/19/19 20:35 Dose: 40 mg Hydrochlorothiazide (Hydrochlorothiazide) 12.5 mg PO DAILY [facility] Lisinopril (Prinivil) 20 mg PO DAILY [facility] Last Admin: 02/20/19 10:00 Dose: 20 mg Ondansetron HCl (Zofran Odt) 4 mg PO Q4H PRN PRN Reason: Nausea/Vomiting Sodium Chloride (Saline Flush) 10 ml FLUSH ASDIRECTED PRN PRN Reason: Keep Vein Open Sodium Chloride (Saline Flush) 2.5 ml FLUSH ASDIRECTED PRN PRN Reason: Keep Vein Open Tamsulosin HCl (Flomax) 0.4 mg PO BID [facility] Last Admin: 02/20/19 10:07 Dose: 0.4 mg Discontinued Medications Gadobenate Dimeglumine (Multihance) 20 ml IVPUSH ONETIME STA Stop: 02/20/19 06:56 Last Admin: 02/20/19 06:56 Dose: 14 ml Metoprolol Succinate (Toprol Xl) 100 mg PO DAILY [facility] Last Admin: 02/20/19 10:14 Dose: Not Given
== END 2019-02-20 14:30 | disposition home or self-care (01) ==
LOC: MW.ED 20:34 → MW.MS 21:53
PROVIDERS: ADMIT Internal Medicine; ATTEND Internal Medicine
DX: G45.9 Transient cerebral ischemic attack, unspecified (principal); I10 Essential (primary) hypertension; M19.90 Unspecified osteoarthritis, unspecified site; M10.9 Gout, unspecified; N40.0 Benign prostatic hyperplasia without lower urinary tract symptoms; Z79.899 Other long term (current) drug therapy
CPT/HCPCS: 36415; 70450; 70544; 70547; 70553; 71045; 80053; 80061; 81003; 83036; 84484; 85025; 85610; 93005; 99285; A9270; A9577; G0378; 99284

== ENCOUNTER 2019-03-14 21:13 | Emergency (ER) | payer BC ==
--- NOTE | 2019-03-14 21:18 | EDM.PDOC ---
ED HPI GENERAL MEDICAL PROBLEM - General Stated Complaint: HIGH BLOOD PRESSURE Time Seen by Provider: 03/14/19 21:16 - History of Present Illness INITIAL COMMENTS - FREE TEXT/NARRATIVE: HISTORY AND PHYSICAL: History of present illness: The patient is a 63-year-old male with a history of hypertension hypercholesterolemia and BPH who was admitted to our hospital from February 18 until February 20 for TIA symptoms of hand numbness associated with elevated blood pressure. He was managed and had an MRI and MRA of the head and neck which did not reveal any abnormality and he was restarted on his medication lisinopril , hydrochlorothiazide and atorvastatin were also added. The patient was scheduled to follow-up with his provider at [facility] Julienne Bass. Patient states that he did follow up in the clinic and he also saw our orthopedics clinic for pain and issues with his right knee and received a steroid injection. The patient presents to the ED tonight concerns about an episode of lightheadedness where he felt very off balance but he did not pass out or blackout at about 6 PM. He also says that he feels that episodic numbness in his 8 hand which occurred and caused his admission back in January which comes and goes which also occurred when he got lightheaded tonight. He says that his symptoms are completely resolved. He tells me that his blood pressures been running systolically 120s and he has been compliant with his medications. He has no leg pain or swelling no chest pain or shortness of breath no abdominal pain nausea or vomiting and no head neck or back pain. He's had normal urinary output and no upper respiratory infection symptomatology. He says that this episode occurred about 6 PM and he did not fall with that and had no associated pain with that and it has since resolved but he was scared so he came in for evaluation. He has no weakness in his right hand Nor in his upper extremity and the numbness and tingling he experiences episodically is only in the hand. He has no lower extremity complaints and has been eating and drinking normally. Currently in the ED is completely asymptomatic Review of systems: As per history of present illness and below otherwise all systems reviewed and negative. Past medical history: As per history of present illness and as reviewed below otherwise noncontributory. Surgical history: As per history of present illness and as reviewed below otherwise noncontributory. Social history: No reported history of drug or alcohol abuse. Family history: As per history of present illness and as reviewed below otherwise noncontributory. Physical exam: General: Well developed well-nourished man who is nontoxic and vital signs are noted by me. He moves easily in the ED without distress and speaks clearly HEENT: Atraumatic, normocephalic, pupils reactive, negative for conjunctival pallor or scleral icterus, mucous membranes moist, throat clear, neck supple, nontender, trachea midline. Lungs: Clear to auscultation, breath sounds equal bilaterally, chest nontender. Heart: S1S2, regular, negative for clicks, rubs, or JVD. Abdomen: Soft, nondistended, nontender. Negative for masses or hepatosplenomegaly. Negative for costovertebral tenderness. Pelvis: Deferred Genitourinary: Deferred. Rectal: Deferred. Extremities: Atraumatic, negative for cords or calf pain. Neurovascular unremarkable. No pedal edema or leg asymmetry Neuro: Awake, alert, oriented. Cranial nerves II through XII unremarkable. Cerebellum unremarkable. Motor and sensory unremarkable throughout. Exam nonfocal. Diagnostics: EKG CBC CMP troponin orthostatic vitals CT scan of the head Therapeutics: Impression: Episode of lightheadedness, chronic episodic paresthesias stable Definitive disposition and diagnosis as appropriate pending reevaluation and review of above. - Related Data Allergies Allergy/AdvReac Type Severity Reaction Status Date / Time No Known Allergies Allergy Verified 03/14/19 21:28 Home Meds: Home Meds Lisinopril 20 mg PO DAILY 02/18/19 [History] Tamsulosin HCl [Flomax] 0.4 mg PO BID 02/18/19 [History] Aspirin 81 mg PO DAILY #30 tab.chew 02/20/19 [Rx] atorvaSTATin [Lipitor] 40 mg PO BEDTIME #30 tablet 02/20/19 [Rx] hydroCHLOROthiazide [Hydrochlorothiazide] 12.5 mg PO DAILY #30 cap 02/20/19 [Rx] Past Medical History - Past Health History Medical/Surgical History: Denies Medical/Surgical History HEENT History: Reports: None Other HEENT History: wears glasses Cardiovascular History: Reports: Hypertension Genitourinary History: Reports: Prostate Disorder Musculoskeletal History: Reports: Gout Psychiatric History: Reports: None - Past Surgical History Musculoskeletal Surgical History: Reports: Other (See Below) Social & Family History - Family History Family Medical History: Noncontributory - Caffeine Use Caffeine Use: Reports: Coffee ED ROS GENERAL - Review of Systems Review Of Systems: Comprehensive ROS is negative, except as noted in HPI. ED EXAM, GENERAL - Physical Exam Exam: See Below (See dictation) Course - Vital Signs Last Recorded V/S: Last Vital Signs Temp 36.3 C 03/14/19 21:30 Pulse 77 03/14/19 21:30 Resp 17 03/14/19 21:30 BP 125/83 03/14/19 21:30 Pulse Ox 97 03/14/19 21:30 Orthostatic Blood Pressure [ 131/80 Standing] Orthostatic Blood Pressure [ 136/79 Sitting] Orthostatic Blood Pressure [ 138/79 Supine] - Orders/Labs/Meds Orders: Active Orders 24 hr Category Date Time Status EKG Documentation Completion [RC] STAT Care 03/14/19 21:30 Active Orthostatic Vital Signs [RC] ASDIRECTED Care 03/14/19 21:30 Active Head wo Cont [CT] Stat Exams 03/14/19 21:30 Taken Labs: Laboratory Tests 03/14/19 03/14/19 Range/Units 21:40 21:40 WBC 9.66 (4.0-11.0) K/uL RBC 4.69 (4.50-5.90) M/uL Hgb 14.7 (13.0-17.0) g/dL Hct 42.7 (38.0-50.0) % MCV 91.0 (80.0-98.0) fL MCH 31.3 (27.0-32.0) pg MCHC 34.4 (31.0-37.0) g/dL RDW Std Deviation 43.6 (28.0-62.0) fl RDW Coeff of Aziza 13 (11.0-15.0) % Plt Count 234 (150-400) K/uL MPV 12.30 H (7.40-12.00) fL Neut % (Auto) 65.5 (48.0-80.0) % Lymph % (Auto) 22.2 (16.0-40.0) % [place] % (Auto) 11.3 (0.0-15.0) % Eos % (Auto) 0.6 (0.0-7.0) % Baso % (Auto) 0.4 (0.0-1.5) % Neut # (Auto) 6.3 H (1.4-5.7) K/uL Lymph # (Auto) 2.1 (0.6-2.4) K/uL [place] # (Auto) 1.1 H (0.0-0.8) K/uL Eos # (Auto) 0.1 (0.0-0.7) K/uL Baso # (Auto) 0.0 (0.0-0.1) K/uL Nucleated RBC % 0.0 /100WBC Nucleated RBCs # 0 K/uL Sodium 137 (136-148) mmol/L Potassium 3.9 (3.5-5.1) mmol/L Chloride 103 (98-107) mmol/L Carbon Dioxide 25.0 (21.0-32.0) mmol/L BUN 20 H (7.0-18.0) mg/dL Creatinine 0.9 (0.8-1.3) mg/dL Est Cr Clr Drug Dosing 71.26 mL/min Estimated GFR (MDRD) > 60.0 ml/min Glucose 133 H (74-106) mg/dL Calcium 8.9 (8.5-10.1) mg/dL Total Bilirubin 0.6 (0.2-1.0) mg/dL AST 27 (15-37) IU/L ALT 40 (14-63) IU/L Alkaline Phosphatase 124 H (46-116) U/L Troponin I < 0.050 (0.000-0.056) ng/mL Total Protein 8.5 H (6.4-8.2) g/dL Albumin 4.6 (3.4-5.0) g/dL Globulin 3.9 (2.6-4.0) g/dL Albumin/Globulin Ratio 1.2 (0.9-1.6) Departure - Departure Time of Disposition: 22:41 Disposition: Home, Self-Care 01 Condition: Good Clinical Impression: Lightheadedness Paresthesia of hand Qualifiers: Laterality: right Qualified Code(s): R20.2 - Paresthesia of skin - Discharge Information Referrals: PCP,None [Primary Care Provider] - Additional Instructions: The following information is given to patients seen in the emergency department who are being discharged to home. This information is to outline your options for follow-up care. We provide all patients seen in our emergency department with a follow-up referral. The need for follow-up, as well as the timing and circumstances, are variable depending upon the specifics of your emergency department visit. If you don't have a primary care physician on staff, we will provide you with a referral. We always advise you to contact your personal physician following an emergency department visit to inform them of the circumstance of the visit and for follow-up with them and/or the need for any referrals to a consulting specialist. The emergency department will also refer you to a specialist when appropriate. This referral assures that you have the opportunity for followup care with a specialist. All of these measure are taken in an effort to provide you with optimal care, which includes your followup. Under all circumstances we always encourage you to contact your private physician who remains a resource for coordinating your care. When calling for followup care, please make the office aware that this follow-up is from your recent emergency room visit. If for any reason you are refused follow-up, please contact the [facility] emergency department at and ask to speak to the emergency department charge nurse. [address] [place] [address] Continue to monitor your symptoms and follow-up with your provider at [facility] to discuss her medications and tonight ED visit. Return to ER as needed and as discussed. Continue home medications - My Orders Last 24 Hours: My Active Orders 03/14/19 21:30 EKG Documentation Completion [RC] STAT Orthostatic Vital Signs [RC] ASDIRECTED Head wo Cont [CT] Stat - Assessment/Plan Last 24 Hours: My Active Orders 03/14/19 21:30 EKG Documentation Completion [RC] STAT Orthostatic Vital Signs [RC] ASDIRECTED Head wo Cont [CT] Stat
[2019-03-14 22:06] LABS: BLOOD UREA NITROGEN,BUN 20 mg/dL (7.0-18.0); CHLORIDE,CL 103 mmol/L (98-107); GLUCOSE RANDOM 133 mg/dL (74-106); POTASSIUM,K 3.9 mmol/L (3.5-5.1); SODIUM,NA 137 mmol/L (136-148)
--- NOTE | 2019-03-14 22:42 | CT ---
INDICATION: Headache and hypertension TECHNIQUE: CT head without contrast. COMPARISON: Head CT 02/18/2019 FINDINGS: CSF spaces: Within normal limits for age. Brain parenchyma: Adorno-white differentiation is distinct. No intracranial bleed minimal low-density in the deep white matter. Skull base and calvarium: The visualized paranasal sinuses and mastoid air cells demonstrate no acute or significant findings. The visualized orbits are grossly unremarkable. No skull fractures. IMPRESSION: 1. No intracranial bleed or mass effect. 2. Minimal nonspecific white matter disease, likely microangiopathy. Please note that all CT scans at this facility use dose modulation, iterative reconstruction, and/or weight-based dosing when appropriate to reduce radiation dose to as low as reasonably achievable. Dictated by Ankur Churchill MD @ Mar 14 2019 10:34PM Signed by Dr. Ankur Churchill @ Mar 14 2019 10:40PM
[2019-03-14 23:00] VITALS: BP 143/82; PULSE 61
== END 2019-03-14 23:00 | disposition home or self-care (01) ==
LOC: MW.ED 21:13
DX: R42 Dizziness and giddiness (principal); R20.2 Paresthesia of skin; I10 Essential (primary) hypertension; E78.00 Pure hypercholesterolemia, unspecified; N40.0 Benign prostatic hyperplasia without lower urinary tract symptoms; Z79.899 Other long term (current) drug therapy; Z79.82 Long term (current) use of aspirin; Z86.73 Personal history of transient ischemic attack (TIA), and cerebral infarction without residual deficits
CPT/HCPCS: 36415; 70450; 70450-26; 80053; 84484; 85025; 93005; 99283; 99284-25

== ENCOUNTER 2019-08-08 17:46 | Emergency (ER) | payer BC, OTHER ==
--- NOTE | 2019-08-08 18:22 | EDM.PDOC ---
ED HPI GENERAL MEDICAL PROBLEM - General Chief Complaint: ENT Problem Stated Complaint: SORE THROAT , AND FEVER Time Seen by Provider: 08/08/19 17:59 Source of Information: Reports: Patient History Limitations: Reports: No Limitations - History of Present Illness INITIAL COMMENTS - FREE TEXT/NARRATIVE: HISTORY AND PHYSICAL: History of present illness: Patient is a 64-year-old male who presents to the emergency room with complaints of sore throat and chest warmth x2 days. He states that the skin on his chest feels "warm and flushed". Nothing makes this sensation better or worse. Patient denies any fever, chills, headache, change in vision, syncope or near syncope. Denies any chest pain, back pain, shortness of breath or cough. Denies any GI or symptoms. Patient has been eating and drinking appropriately. Denies any rashes, lesions or recent travel. *[employer] translation services were use: /[place]an Speaking Review of systems: As per history of present illness and below otherwise all systems reviewed and negative. Past medical history: As per history of present illness and as reviewed below otherwise noncontributory. Surgical history: As per history of present illness and as reviewed below otherwise noncontributory. Social history: See social history for further information Family history: As per history of present illness and as reviewed below otherwise noncontributory. Physical exam: General: Well-developed and well-nourished 64-year-old male. Alert and oriented. Nontoxic-appearing and in no acute distress. HEENT: Atraumatic, normocephalic, pupils equal and reactive bilaterally, negative for conjunctival pallor or scleral icterus, mucous membranes moist, TMs normal bilaterally, throat mildly erythematous without exudate or soft tissue swelling, neck supple, nontender, trachea midline. No drooling or trismus noted. No meningeal signs. No hot potato voice noted. Lungs: Clear to auscultation, breath sounds equal bilaterally, chest nontender. Heart: S1S2, regular rate and rhythm without overt murmur Abdomen: Soft, nondistended, nontender. Skin: Intact, warm, dry. No lesions or rashes noted. Extremities: Atraumatic, moves all extremities per self without difficulty or deficits, negative for cords or calf pain. Neurovascular unremarkable. Neuro: Awake, alert, oriented. Cranial nerves II through XII unremarkable. Cerebellum unremarkable. Motor and sensory unremarkable throughout. Exam nonfocal. Notes: [employer] translation services were used; patient is adamant that he doesn't have any sort of chest pain or pressure- rather states his skin feels warm to touch. Physical exam is normal; he is agreeable to basic labs and EKG at this time. EKG is within normal limits, no suspicion of STEMI. Labs are within normal limits. Supportive care measures were reviewed and discussed. Voices understanding and is agreeable to plan of care. Denies any further questions or concerns at this time. Diagnostics: None Therapeutics: None Prescription: None Impression: Pharyngitis, unspecified Nonspecific chest pain Plan: 1. Take your medication as directed. Good handwashing and contact precautions as we discussed. 2. Warm Salt water gargles (rinse and spit) 3-4 x daily. Please get a new tooth brush after completion of your medication 3. Tylenol and or ibuprofen as needed for pain management. 4. Follow-up with your primary care provider in the next 1-2 days. Return to the ED as needed and as discussed. Definitive disposition and diagnosis as appropriate pending reevaluation and review of above. - Related Data Allergies Allergy/AdvReac Type Severity Reaction Status Date / Time No Known Allergies Allergy Verified 08/08/19 18:12 Home Meds: Home Meds Tamsulosin HCl [Flomax] 0.4 mg PO BID 02/18/19 [History] lisinopriL [Lisinopril] 20 mg PO DAILY 02/18/19 [History] Aspirin 81 mg PO DAILY #30 tab.chew 02/20/19 [Rx] atorvaSTATin [Lipitor] 40 mg PO BEDTIME #30 tablet 02/20/19 [Rx] hydroCHLOROthiazide [Hydrochlorothiazide] 12.5 mg PO DAILY #30 cap 02/20/19 [Rx] Past Medical History - Past Health History Medical/Surgical History: Denies Medical/Surgical History HEENT History: Reports: None Other HEENT History: wears glasses Cardiovascular History: Reports: Hypertension Genitourinary History: Reports: Prostate Disorder Musculoskeletal History: Reports: Gout Psychiatric History: Reports: None - Past Surgical History HEENT Surgical History: Reports: None Cardiovascular Surgical History: Reports: None Male Surgical History: Reports: None Musculoskeletal Surgical History: Reports: Other (See Below) Other Musculoskeletal Surgeries/Procedures:: L knee Social & Family History - Family History Family Medical History: Noncontributory - Tobacco Use Smoking Status *Q: Never Smoker Second Hand Smoke Exposure: No - Caffeine Use Caffeine Use: Reports: Coffee - Recreational Drug Use Recreational Drug Use: No ED ROS ENT - Review of Systems Review Of Systems: Comprehensive ROS is negative, except as noted in HPI. ED EXAM, ENT - Physical Exam Exam: See Below (See dictation) Course - Vital Signs Last Recorded V/S: Last Vital Signs Temp 97.3 F 08/08/19 19:00 Pulse 67 08/08/19 19:39 Resp 16 08/08/19 19:39 BP 158/80 H 08/08/19 19:39 Pulse Ox 97 08/08/19 19:39 - Orders/Labs/Meds Orders: Active Orders 24 hr Category Date Time Status EKG Documentation Completion [RC] STAT Care 08/08/19 19:04 Active Labs: Laboratory Tests 08/08/19 08/08/19 Range/Units 19:12 19:12 WBC 9.45 (4.0-11.0) K/uL RBC 4.72 (4.50-5.90) M/uL Hgb 14.2 (13.0-17.0) g/dL Hct 42.4 (38.0-50.0) % MCV 89.8 (80.0-98.0) fL MCH 30.1 (27.0-32.0) pg MCHC 33.5 (31.0-37.0) g/dL RDW Std Deviation 42.6 (28.0-62.0) fl RDW Coeff of Aziza 13 (11.0-15.0) % Plt Count 246 (150-400) K/uL MPV 12.00 (7.40-12.00) fL Neut % (Auto) 68.3 (48.0-80.0) % Lymph % (Auto) 21.9 (16.0-40.0) % [place] % (Auto) 9.3 (0.0-15.0) % Eos % (Auto) 0.3 (0.0-7.0) % Baso % (Auto) 0.2 (0.0-1.5) % Neut # (Auto) 6.5 H (1.4-5.7) K/uL Lymph # (Auto) 2.1 (0.6-2.4) K/uL [place] # (Auto) 0.9 H (0.0-0.8) K/uL Eos # (Auto) 0.0 (0.0-0.7) K/uL Baso # (Auto) 0.0 (0.0-0.1) K/uL Nucleated RBC % 0.0 /100WBC Nucleated RBCs # 0 K/uL Sodium 137 (136-148) mmol/L Potassium 3.9 (3.5-5.1) mmol/L Chloride 100 (98-107) mmol/L Carbon Dioxide 25.3 (21.0-32.0) mmol/L BUN 9 (7.0-18.0) mg/dL Creatinine 0.7 L (0.8-1.3) mg/dL Est Cr Clr Drug Dosing 76.39 mL/min Estimated GFR (MDRD) > 60.0 ml/min Glucose 127 H (74-106) mg/dL Calcium 9.2 (8.5-10.1) mg/dL Total Bilirubin 0.5 (0.2-1.0) mg/dL AST 25 (15-37) IU/L ALT 35 (14-63) IU/L Alkaline Phosphatase 93 (46-116) U/L Troponin I < 0.050 (0.000-0.056) ng/mL Total Protein 7.8 (6.4-8.2) g/dL Albumin 4.0 (3.4-5.0) g/dL Globulin 3.8 (2.6-4.0) g/dL Albumin/Globulin Ratio 1.1 (0.9-1.6) Meds: Medications Discontinued Medications Generic Name Dose Route Start Last Admin Trade Name Freq PRN Reason Stop Dose Admin Aspirin 324 mg 08/08/19 19:04 08/08/19 19:37 Aspirin PO 08/08/19 19:05 324 mg ONETIME ONE Administration Departure - Departure Time of Disposition: 20:18 Disposition: Home, Self-Care 01 Clinical Impression: Nonspecific chest pain Pharyngitis Qualifiers: Pharyngitis/tonsillitis etiology: unspecified etiology Qualified Code(s): J02.9 - Acute pharyngitis, unspecified - Discharge Information Instructions: Pharyngitis, [id number] Referrals: PCP,None [Primary Care Provider] - Forms: ED Department Discharge Additional Instructions: The following information is given to patients seen in the emergency department who are being discharged to home. This information is to outline your options for follow-up care. We provide all patients seen in our emergency department with a follow-up referral. The need for follow-up, as well as the timing and circumstances, are variable depending upon the specifics of your emergency department visit. If you don't have a primary care physician on staff, we will provide you with a referral. We always advise you to contact your personal physician following an emergency department visit to inform them of the circumstance of the visit and for follow-up with them and/or the need for any referrals to a consulting specialist. The emergency department will also refer you to a specialist when appropriate. This referral assures that you have the opportunity for follow-up care with a specialist. All of these measure are taken in an effort to provide you with optimal care, which includes your follow-up. Under all circumstances we always encourage you to contact your private physician who remains a resource for coordinating your care. When calling for follow-up care, please make the office aware that this follow-up is from your recent emergency room visit. If for any reason you are refused follow-up, please contact the [facility] Emergency Department at and asked to speak to the emergency department charge nurse. [facility] [address] [place] [address] [place] [address] 1. Take your medication as directed. Good handwashing and contact precautions as we discussed. 2. Warm Salt water gargles (rinse and spit) 3-4 x daily. Please get a new tooth brush after completion of your medication 3. Tylenol and or ibuprofen as needed for pain management. 4. Follow-up with your primary care provider in the next 1-2 days. Return to the ED as needed and as discussed. Sepsis Event Note - Evaluation Sepsis Screening Result: No Definite Risk - Focused Exam Vital Signs: Vital Signs Temp Pulse Resp BP Pulse Ox 08/08/19 19:39 67 16 158/80 H 97 08/08/19 19:00 97.3 F 71 16 154/80 H 97 08/08/19 17:58 97.5 F 75 20 148/87 H 97 Date Exam was Performed: 08/08/19 Time Exam was Performed: 20:00 - My Orders Last 24 Hours: My Active Orders 08/08/19 19:04 EKG Documentation Completion [RC] STAT - Assessment/Plan Last 24 Hours: My Active Orders 08/08/19 19:04 EKG Documentation Completion [RC] STAT
[2019-08-08] MEDS ORDERED: Aspirin 81 MG Tab.Chew PO ONE (19:04)
[2019-08-08 19:56] LABS: BLOOD UREA NITROGEN,BUN 9 mg/dL (7.0-18.0); CARBON DIOXIDE,CO2 25.3 mmol/L (21.0-32.0); CHLORIDE,CL 100 mmol/L (98-107); GLUCOSE RANDOM 127 mg/dL (74-106); POTASSIUM,K 3.9 mmol/L (3.5-5.1); SODIUM,NA 137 mmol/L (136-148)
--- NOTE | 2019-08-08 19:59 | CR ---
INDICATION: Chest skin is warm TECHNIQUE: Chest 1 views COMPARISON: 02/18/2019 FINDINGS: Cardiovascular and mediastinum: Heart size and vasculature are normal in caliber and appearance. Lungs and pleural spaces: Lungs are clear. No sign of infiltrate or mass. No sign of pleural effusion. No pneumothorax. Bones and soft tissues: No significant findings. IMPRESSION: Negative chest. Dictated by Jordan Zhu MD @ Aug 08 2019 7:56PM Signed by Dr. Jordan Zhu @ Aug 08 2019 7:58PM
[2019-08-08 21:00] VITALS: BP 140/75; PULSE 70
== END 2019-08-08 20:20 | disposition home or self-care (01) ==
LOC: MW.ED 17:46
DX: J02.9 Acute pharyngitis, unspecified (principal); R07.9 Chest pain, unspecified; I10 Essential (primary) hypertension; M10.9 Gout, unspecified; Z79.82 Long term (current) use of aspirin; Z79.899 Other long term (current) drug therapy
CPT/HCPCS: 36415; 71045; 80053; 84484; 85025; 93005; 99283; A9270; 99282